=== PATIENT | male | born 1975 | race Caucasian/White ===

== ENCOUNTER → 2017-01-02 | Outpatient (CLI) | payer BC ==
[~2017-01-02] MED LIST: AMBI10TA; AMBI5TAB; COLC0.6T; EFFE150C; FIORICET; GASTROGRAFIN SOLUTION 30ML (Q9963) As Ordered ONE; ISOVUE-370 76% 100ML VIAL (Q9967) As Ordered ONE; PERC5TAB8; PRED5TAB; SYNT50TA; VICO5TAB
--- NOTE | 2017-01-03 04:16 | REP ---
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 Technique: Axial contrast enhanced images from the lung bases to the pubic symphysis using oral and 100 ml Isovue 370 intravenous contrast material with coronal and sagittal re-formations as well as precontrast images of the abdomen. Comparison: 06/02/2013. Findings: Lymph nodes/mass in the mesentery have decreased in size and quantity when compared to prior examination. As example, the largest to lymph nodes (images 71 - 85) currently measures 2.5 and 1.5 cm maximal diameter previously measuring 3.3 and 2.0 cm maximal diameter respectively. No new adenopathy or mass lesion identified. The liver, spleen, pancreas, bilateral adrenal glands and kidneys are normal. The enteric system is without obstruction or acute inflammatory process. Few scattered colonic diverticula noted without acute diverticulitis. Pelvis demonstrates normal bladder and age appropriate prostate/seminal vesicles. No free air. No free fluid/ascites. No significant retroperitoneal adenopathy. Lung bases demonstrate a very fine reticulonodular interstitial pattern which may warrant reevaluation and pulmonary consultation. Musculoskeletal structures without focal osseous abnormality. Impression: 1. Improved appearance with decreased size and quantity to the mesenteric lymph nodes/mass. 2. No new acute intra-abdominal or pelvic pathology appreciated. 3. A very subtle reticulonodular interstitial pattern to the lung fitzpatrick may warrant followup and pulmonary consultation. Signed by John Bansal MD 01/03/2017 04:08 A
--- NOTE | 2017-01-03 05:14 | REP ---
Clinical: Sclerosing mesenteritis. Technique: Axial contrast enhanced images from the thoracic inlet to the upper abdomen is seen 100 ml Isovue 370 intravenous contrast material with coronal and sagittal re-formations. Comparison: 12/06/2011 Findings: Bilateral lung fitzpatrick are well-aerated, symmetric and essentially clear. No consolidation, nodule or mass lesion identified. No pleural effusion/reaction or pneumothorax. Tracheobronchial tree is patent. No axillary, hilar, or mediastinal adenopathy. Mediastinum including thoracic aorta, heart and pericardium appear normal. Musculoskeletal structures are intact. Impression: Normal chest CT. No acute mediastinal or pleuroparenchymal process. Signed by John Bansal MD 01/03/2017 05:05 A
== END ==
LOC: M RAD 14:48
PROVIDERS: ATTEND Internal Medicine Hematology & Oncology
DX: K65.4 Sclerosing mesenteritis (principal)
CPT/HCPCS: 71260; 74178; Q9963; Q9967

== ENCOUNTER → 2017-09-28 | Outpatient (CLI) | payer BC ==
[~2017-09-28] MED LIST changes: -AMBI10TA; -AMBI5TAB; -COLC0.6T; -EFFE150C; -FIORICET; +GASTROGRAFIN SOLUTION 30ML (Q9963) As Ordered; -GASTROGRAFIN SOLUTION 30ML (Q9963) As Ordered ONE; +ISOVUE-370 76% 100ML VIAL (Q9967) As Ordered; -ISOVUE-370 76% 100ML VIAL (Q9967) As Ordered ONE; -PERC5TAB8; -PRED5TAB; -SYNT50TA; -VICO5TAB
== END ==
LOC: M RAD 14:31
DX: K65.4 Sclerosing mesenteritis (principal)
CPT/HCPCS: Q9963

== ENCOUNTER → 2021-04-29 | Outpatient (CLI) | payer BC ==
[~2021-04-29] MED LIST changes: +AMBI10TA; +AMBI5TAB; +COLC0.6T; +EFFE150C; +FIORICET; -GASTROGRAFIN SOLUTION 30ML (Q9963) As Ordered; -ISOVUE-370 76% 100ML VIAL (Q9967) As Ordered; +PERC5TAB8; +PRED5TAB; +SYNT50TA; +VICO5TAB
--- NOTE | 2021-05-01 11:17 | REP ---
INDICATION: RT PVD COMPARISON: None. TECHNIQUE: Real time jacobs scale and color Doppler evaluation of the bilateral lower extremity arterial vasculature using linear high frequency transducer. FINDINGS: Jacobs scale and color images demonstrate mild atheromatous plaquing with no focal stenosis or occlusion identified. Doppler interrogation demonstrates normal arterial wave forms and velocities bilaterally. Peak systolic velocities (cm/sec) Common femoral artery: Right 70.0; Left 67.5 Profunda femoris: Right 55.0; Left 40.7 SFA (proximal): Right 58.2; Left 77.0 SFA (mid): Right 74.2; Left 74.7 SFA (distal): Right 74.6; Left 76.5 Popliteal artery: Right 52.2; Left 57.0 [place] (prox.): Right 51.2; Left 48.2 Tibioperoneal trunk: Right 74.2; Left 37.1 [employer]CREMENT [employer]GER (prox.): Right 45.6; Left 55.4 INCREMENT MANAGER (distal): Right 106.3; Left 51.5 [place] (distal): Right 53.0; Left 49.5 IMPRESSION: Mild bilateral atheromatous changes with no obvious focal occlusion or stenosis. <Electronically signed by John Bansal > 05/01/21 [id number]
== END ==
LOC: M RAD 14:33
PROVIDERS: ATTEND Internal Medicine
DX: I73.9 Peripheral vascular disease, unspecified (principal)

== ENCOUNTER 2021-05-22 13:26 | Emergency (ER) | payer BC ==
[~2021-05-22] VITALS: Ht 182.9 cm; Wt 94.3 kg
[2021-05-22] MEDS ORDERED: PRED5TA PO (13:37)
[2021-05-22] MEDS ORDERED: METO1TAB32 PO (13:37)
[2021-05-22] MEDS ORDERED: DULO1CAP6 PO (13:37)
[2021-05-22] MEDS ORDERED: LISI-898 PO (13:37)
--- NOTE | 2021-05-22 14:14 | REP ---
INDICATION: fall, pain COMPARISON: None. TECHNIQUE: Four views left hand. FINDINGS: There are nondisplaced fractures at the bases of the 3rd through 5th proximal phalanges. There is no other evidence of acute fracture or dislocation. IMPRESSION: Nondisplaced fractures at the bases of the 3rd through 5th proximal phalanges. <Electronically signed by Milton Jacobs > 05/22/21 [id number]
[2021-05-22 16:27] VITALS: BP 164/98
[2021-05-22] MEDS ORDERED: NORCO 5/325MG TABLET (BULK FOR ED) PO ONE (16:30)
[2021-05-22] MEDS ORDERED: METOPROLOL TART 50 MG TAB PO ONE (16:45)
== END 2021-05-22 16:51 | disposition home or self-care (01) ==
LOC: M ED 13:26
DX: S62.643A Nondisplaced fracture of proximal phalanx of left middle finger, initial encounter for closed fracture (principal); S62.647A Nondisplaced fracture of proximal phalanx of left little finger, initial encounter for closed fracture; S62.645A Nondisplaced fracture of proximal phalanx of left ring finger, initial encounter for closed fracture; W03.XXXA Other fall on same level due to collision with another person, initial encounter; Y92.9 Unspecified place or not applicable; Y93.9 Activity, unspecified; Y99.9 Unspecified external cause status; Z88.7 Allergy status to serum and vaccine; F17.200 Nicotine dependence, unspecified, uncomplicated

== ENCOUNTER → 2022-01-11 | Outpatient (CLI) | payer BC ==
[~2022-01-11] MED LIST changes: +DULO1CAP6 PO; +LISI5TAB11 PO; +METO1TAB32 PO; +PRED5TA PO
== END ==
LOC: M PLALAB 13:49
PROVIDERS: ATTEND Nurse Practitioner Family
DX: M25.551 Pain in right hip (principal); M25.552 Pain in left hip; M25.561 Pain in right knee; M25.562 Pain in left knee; Z79.52 Long term (current) use of systemic steroids

== ENCOUNTER → 2022-04-01 | Outpatient (CLI) | payer OTHER | LOC: M LAB 14:33 | PROVIDERS: ATTEND Physician Assistant | DX: E29.1 Testicular hypofunction (principal) ==

== ENCOUNTER → 2022-07-12 | Outpatient (CLI) | payer OTHER | LOC: M LAB 14:12 | PROVIDERS: ATTEND Physician Assistant | DX: E29.1 Testicular hypofunction (principal) ==

== ENCOUNTER → 2022-08-08 | Outpatient (CLI) | payer OTHER ==
[2022-08-08 13:17] LABS: BASO # 0.1 10^3/uL (0.0-0.2); BASO % 0.9 % (0.0-1.0); EOS # 0.3 10^3/uL (0.0-0.5); EOS % 3.3 % (0.0-3.0); HEMATOCRIT 45.7 % (42.0-52.0); HEMOGLOBIN 15.3 g/dl (13.5-17.5); LYMPH # 1.9 10^3/uL (1.5-5.0); LYMPH % 22.1 % (24.0-44.0); MEAN CORPUSCULAR HEMOGLOBIN 30.6 pg (27.0-33.0); MEAN CORPUSCULAR HGB CONC 33.5 g/dl (32.0-36.5); MEAN CORPUSCULAR VOLUME 91.4 fl (80.0-96.0); MONO # 0.7 10^3/uL (0.0-0.8); MONO % 8.5 % (2.0-8.0); NEUTROPHILS # 5.5 10^3/uL (1.5-8.5); NEUTROPHILS % 64.8 % (36.0-66.0); PLATELET COUNT, AUTOMATED 286 10^3/uL (150-450); WHITE BLOOD COUNT 8.5 10^3/uL (4.0-10.0)
[2022-08-08 14:20] LABS: CHLORIDE LEVEL 102 MMOL/L (98-107); POTASSIUM SERUM 4.2 MMOL/L (3.5-5.1); SODIUM LEVEL 140 MMOL/L (136-145)
[2022-08-08 14:21] LABS: ALBUMIN 4.3 G/DL (3.2-5.2); CARBON DIOXIDE LEVEL 27 MMOL/L (20-31)
[2022-08-08 14:26] LABS: ALKALINE PHOSPHATASE 58 U/L (46-116); BLOOD UREA NITROGEN 10 MG/DL (9-23); CALCIUM LEVEL 9.6 MG/DL (8.5-10.1); GLUCOSE, FASTING 116 MG/DL (60-100)
[2022-08-08 14:27] LABS: ALT/SGPT 29 U/L (7.0-40)
[2022-08-08 14:28] LABS: AST/SGOT 30 U/L (<34)
[2022-08-08 14:29] LABS: BILIRUBIN,TOTAL 0.6 MG/DL (0.3-1.2); CREATININE FOR GFR 1.05 MG/DL (0.70-1.30); GLOMERULAR FILTRATION RATE > 60.0 (>60); TOTAL PROTEIN 7.1 G/DL (5.7-8.2)
== END ==
LOC: M LAB 12:40
PROVIDERS: ATTEND Specialist
DX: E29.1 Testicular hypofunction (principal)
CPT/HCPCS: 36415; 80053; 85025; G0103

== ENCOUNTER → 2022-10-07 | Outpatient (CLI) | payer OTHER | LOC: M LAB 13:57 | PROVIDERS: ATTEND Physician Assistant | DX: E29.1 Testicular hypofunction (principal) ==

== ENCOUNTER → 2022-10-13 | Outpatient (CLI) | payer BC, OTHER | LOC: M LAB 14:06 | PROVIDERS: ATTEND Specialist | DX: E29.1 Testicular hypofunction (principal) ==

== ENCOUNTER → 2022-11-21 | Outpatient (CLI) | payer BC ==
[2022-11-23 23:15] LABS: TESTOSTERONE FREE (DIRECT) 3.9 pg/mL (6.8-21.5)
== END ==
LOC: M LAB 13:13
PROVIDERS: ATTEND Physician Assistant
DX: E29.1 Testicular hypofunction (principal)

== ENCOUNTER → 2022-11-25 | Outpatient (CLI) | payer OTHER | LOC: M LAB 14:57 | PROVIDERS: ATTEND Physician Assistant | DX: E29.1 Testicular hypofunction (principal) ==

== ENCOUNTER → 2023-01-26 | Outpatient (CLI) | payer OTHER | LOC: M LAB 13:25 | PROVIDERS: ATTEND Physician Assistant | DX: E29.1 Testicular hypofunction (principal) ==

== ENCOUNTER → 2023-03-30 | Outpatient (CLI) | payer BC, OTHER | LOC: M LAB 13:20 | PROVIDERS: ATTEND Physician Assistant | DX: E29.1 Testicular hypofunction (principal) ==

== ENCOUNTER → 2023-04-01 | Outpatient (CLI) | payer BC, OTHER | LOC: M LAB 15:42 | PROVIDERS: ATTEND Physician Assistant | DX: E29.1 Testicular hypofunction (principal) ==

== ENCOUNTER → 2023-05-05 | Outpatient (CLI) | payer BC, OTHER ==
[2023-05-05 12:58] LABS: BASO # 0.1 10^3/uL (0.0-0.2); BASO % 0.9 % (0.0-1.0); EOS # 0.2 10^3/uL (0.0-0.5); EOS % 2.2 % (0.0-3.0); HEMATOCRIT 48.5 % (42.0-52.0); HEMOGLOBIN 16.8 g/dl (13.5-17.5); LYMPH # 1.8 10^3/uL (1.5-5.0); LYMPH % 23.4 % (24.0-44.0); MEAN CORPUSCULAR HEMOGLOBIN 32.1 pg (27.0-33.0); MEAN CORPUSCULAR HGB CONC 34.6 g/dl (32.0-36.5); MEAN CORPUSCULAR VOLUME 92.6 fl (80.0-96.0); MONO # 0.7 10^3/uL (0.0-0.8); MONO % 8.5 % (2.0-8.0); NEUTROPHILS % 64.7 % (36.0-66.0); PLATELET COUNT, AUTOMATED 239 10^3/uL (150-450); RED BLOOD COUNT 5.24 10^6/uL (4.30-6.10); WHITE BLOOD COUNT 7.7 10^3/uL (4.0-10.0)
[2023-05-05 13:35] LABS: ALBUMIN 3.8 G/DL (3.2-5.2); ALKALINE PHOSPHATASE 42 U/L (46-116); ALT/SGPT 26 U/L (7.0-40); AST/SGOT 23 U/L (<34); BILIRUBIN,TOTAL 0.5 MG/DL (0.3-1.2); BLOOD UREA NITROGEN 11 MG/DL (9-23); CALCIUM LEVEL 8.9 MG/DL (8.5-10.1); CARBON DIOXIDE LEVEL 30 MMOL/L (20-31); CHLORIDE LEVEL 102 MMOL/L (98-107); CREATININE FOR GFR 1.16 MG/DL (0.70-1.30); GLOMERULAR FILTRATION RATE > 60.0 (>56); GLUCOSE, FASTING 115 MG/DL (60-100); POTASSIUM SERUM 4.2 MMOL/L (3.5-5.1); PROSTATIC SPECIFIC AG MONITOR 0.53 NG/ML (< 4.00); SODIUM LEVEL 137 MMOL/L (136-145); TOTAL PROTEIN 6.7 G/DL (5.7-8.2)
== END ==
LOC: M LAB 12:37
PROVIDERS: ATTEND Physician Assistant
DX: E29.1 Testicular hypofunction (principal)

== ENCOUNTER → 2023-05-11 | Outpatient (CLI) | payer OTHER | LOC: M LAB 13:06 | PROVIDERS: ATTEND Physician Assistant | DX: E29.1 Testicular hypofunction (principal) ==

== ENCOUNTER → 2023-05-13 | Outpatient (CLI) | payer OTHER | LOC: M LAB 13:57 | PROVIDERS: ATTEND Physician Assistant | DX: E29.1 Testicular hypofunction (principal) ==

== ENCOUNTER → 2023-06-22 | Outpatient (CLI) | payer OTHER ==
[2023-06-22 12:28] LABS: BASO # 0.1 10^3/uL (0.0-0.2); BASO % 0.9 % (0.0-1.0); EOS # 0.2 10^3/uL (0.0-0.5); EOS % 2.3 % (0.0-3.0); HEMATOCRIT 46.4 % (42.0-52.0); HEMOGLOBIN 16.4 g/dl (13.5-17.5); LYMPH # 2.1 10^3/uL (1.5-5.0); LYMPH % 28.1 % (24.0-44.0); MEAN CORPUSCULAR HEMOGLOBIN 32.2 pg (27.0-33.0); MEAN CORPUSCULAR HGB CONC 35.3 g/dl (32.0-36.5); MEAN CORPUSCULAR VOLUME 91.2 fl (80.0-96.0); MONO # 0.7 10^3/uL (0.0-0.8); MONO % 9.4 % (2.0-8.0); NEUTROPHILS # 4.5 10^3/uL (1.5-8.5); NEUTROPHILS % 59.2 % (36.0-66.0); PLATELET COUNT, AUTOMATED 281 10^3/uL (150-450); RED BLOOD COUNT 5.09 10^6/uL (4.30-6.10); WHITE BLOOD COUNT 7.6 10^3/uL (4.0-10.0)
[2023-06-22 12:55] LABS: PROSTATIC SPECIFIC AG MONITOR 0.56 NG/ML (< 4.00)
[2023-06-22 12:57] LABS: ALBUMIN 3.9 G/DL (3.2-5.2); ALKALINE PHOSPHATASE 45 U/L (46-116); ALT/SGPT 19 U/L (7.0-40); AST/SGOT 22 U/L (<34); BILIRUBIN,TOTAL 0.6 MG/DL (0.3-1.2); BLOOD UREA NITROGEN 12 MG/DL (9-23); CALCIUM LEVEL 9.2 MG/DL (8.5-10.1); CARBON DIOXIDE LEVEL 30 MMOL/L (20-31); CHLORIDE LEVEL 102 MMOL/L (98-107); CREATININE FOR GFR 1.19 MG/DL (0.70-1.30); GLOMERULAR FILTRATION RATE > 60.0 (>56); GLUCOSE, FASTING 119 MG/DL (60-100); POTASSIUM SERUM 4.2 MMOL/L (3.5-5.1); SODIUM LEVEL 139 MMOL/L (136-145); TOTAL PROTEIN 6.8 G/DL (5.7-8.2)
[2023-06-22 13:00] LABS: TESTOSTERONE 737 NG/DL (241-827)
== END ==
LOC: M LAB 11:56
PROVIDERS: ATTEND Physician Assistant
DX: E29.1 Testicular hypofunction (principal)

== ENCOUNTER → 2023-06-24 | Outpatient (CLI) | payer OTHER | LOC: M LAB 11:43 | PROVIDERS: ATTEND Physician Assistant | DX: E29.1 Testicular hypofunction (principal) ==

== ENCOUNTER → 2023-07-20 | Outpatient (CLI) | payer OTHER | LOC: M LAB 11:23 | PROVIDERS: ATTEND Physician Assistant | DX: E29.1 Testicular hypofunction (principal) ==

== ENCOUNTER → 2023-07-23 | Outpatient (CLI) | payer OTHER | LOC: M LAB 11:18 | PROVIDERS: ATTEND Physician Assistant | DX: E29.1 Testicular hypofunction (principal) ==

== ENCOUNTER 2023-10-19 08:59 | Day surgery (SDC) | payer OTHER ==
[~2023-10-19] VITALS: Ht 180.3 cm; Wt 90.3 kg
[~2023-10-19 08:59] MED LIST changes: +BUSP15TA47 PO; +LEVO150C PO; +LISI20TA33 PO; +NS 1,000 ML IV ONE; +SERT150C PO; +SYNT150T PO; +TEST200I14 SC; +VITA100093 PO
[2023-10-19] MEDS: NS 1,000 ML IV ONE (09:14)
[2023-10-19] MEDS ORDERED: LIDOCAINE 2% 100MG/5ML SDV (FOR ANES.) As Ordered ONE (09:21)
[2023-10-19] MEDS ORDERED: propofoL 200 MG/20 ML VIAL As Ordered ONE (09:21)
[2023-10-19 10:46] VITALS: BP 101/58; TEMP 98.4; O2SAT 98
== END 2023-10-19 10:49 | disposition home or self-care (01) ==
LOC: M OPP 08:59
PROVIDERS: ATTEND Surgery
DX: Z12.11 Encounter for screening for malignant neoplasm of colon (principal); Z86.010 Personal history of colon polyps; D12.6 Benign neoplasm of colon, unspecified; K64.4 Residual hemorrhoidal skin tags; K57.30 Diverticulosis of large intestine without perforation or abscess without bleeding; F17.220 Nicotine dependence, chewing tobacco, uncomplicated; E11.9 Type 2 diabetes mellitus without complications; Z79.890 Hormone replacement therapy; Z79.899 Other long term (current) drug therapy; Z88.7 Allergy status to serum and vaccine